=== PATIENT | male | born 1990 | race Caucasian/White ===

== ENCOUNTER 2017-08-04 06:39 | Emergency (ER) | payer OTHER ==
[~2017-08-04] VITALS: Ht 170.2 cm; Wt 78.7 kg
[2017-08-04 06:41] VITALS: Ht 170.2 cm; Wt 78.7 kg
[2017-08-04] MEDS ORDERED: IBUPROFEN 600 MG TAB PO ONE (07:00)
[2017-08-04 07:04] LABS: BASOPHILS % 0.4 % (0.0-2.0); EOSINOPHILS # 0.1 10^3/ul (0.0-0.5); EOSINOPHILS % 1.1 % (0.0-7.0); HEMATOCRIT 37.5 % (42.0-52.0); HEMOGLOBIN 12.9 g/dl (14.0-18.0); LYMPHOCYTES # 1.7 10^3/ul (0.8-2.9); MEAN CORPUSCULAR HEMOGLOBIN 31.8 pg (29.0-33.0); MEAN CORPUSCULAR HGB CONC 34.4 g/dl (32.0-37.0); MEAN CORPUSCULAR VOLUME 92.4 fl (82.0-101.0); MEAN PLATELET VOLUME 9.5 fl (7.4-10.4); MONOCYTE # 1.3 10^3/ul (0.3-0.9); MONOCYTES % 14.2 % (0.0-11.0); NEUTROPHIL # 6.2 10^3/ul (1.6-7.5); NEUTROPHILS % 66.1 % (39.0-77.0); PLATELET COUNT 201 10^3/UL (140-415); RED BLOOD COUNT 4.06 10^6/ul (4.70-6.10); RED CELL DISTRIBUTION WIDTH 11.9 % (11.5-14.5); WHITE BLOOD COUNT 9.4 10^3/ul (4.8-10.8)
[2017-08-04 07:23] LABS: ALBUMIN 4.3 g/dl (3.3-4.9); ALBUMIN/GLOBULIN RATIO 1.1; BILIRUBIN,INDIRECT 0.8 mg/dl (0-1.1); BILIRUBIN,TOTAL 0.8 mg/dl (0.2-1.3); CREATININE 1.03 mg/dl (0.61-1.24); POTASSIUM 3.9 mmol/L (3.5-5.1); TOTAL PROTEIN 8.2 g/dl (6.1-8.1); URIC ACID 4.5 mg/dl (3.1-7.9)
[2017-08-04] MEDS ORDERED: TRAM50TA2 PO (07:43)
[2017-08-04] MEDS ORDERED: IBUP-1542 PO (07:43)
--- NOTE | 2017-08-04 07:49 | RADRPT ---
PROCEDURE: XR Ankle. CLINICAL INDICATION: pain TECHNIQUE: AP, oblique and lateral views of the left ankle were performed. COMPARISON: FINDINGS: There is normal mineralization and alignment. No fracture or osseous lesion is identified. The joints are normal. There is soft tissue swelling lateral to lateral malleolus. IMPRESSION: Soft tissue swelling lateral to the lateral malleolus with no acute fracture. Physician Enio Date Time Electronically viewed and signed by Physician Enio on 08/04/2017 07:48 ROSA/
--- NOTE | 2017-08-04 07:49 | ERD ---
ER Documentation Chief Complaint Chief Complaint left ankle pain/swelling this morning, no injury HPI 27-year-old male woke this morning with left ankle pain. Denies any history of injury. He denies any fevers. Denies any history of gout or additional symptoms. Denies any penile discharge, sore throat, cough, vomiting. ROS All systems reviewed and are negative except as per history of present illness. Medications Home Meds Active Scripts Tramadol HCl (Tramadol HCl) 50 Mg Tablet, 50 MG PO Q4 Y for PAIN, #15 TAB Prov:CARLOS STERLING MD 08/04/17 Ibuprofen* (Motrin*) 600 Mg Tab, 600 MG PO Q6, #20 TAB Prov:CARLOS STERLING MD 08/04/17 Allergies Allergies: Coded Allergies: No Known Drug Allergies (Verified Allergy, 08/30/12) PMhx/Soc Medical and Surgical Hx: pt denies Medical Hx, pt denies Surgical Hx Hx Alcohol Use: No Hx Substance Use: Yes (MARYJUANA, METH) Hx Tobacco Use: No Physical Exam Vitals Vital Signs Date Time Temp Pulse Resp B/P Pulse Ox O2 Delivery O2 Flow Rate FiO2 08/04/17 06:41 98.5 96 18 120/62 97 Physical Exam Const: [] Alert, [id number]. Head: Atraumatic Eyes: Normal Conjunctiva ENT: Normal External Ears, Nose and Mouth. Neck: Full range of motion..~ No meningismus. Resp: Clear to auscultation bilaterally Cardio: Regular rate and rhythm, no murmurs Abd: Soft, non tender, non distended. Normal bowel sounds Skin: No petechiae or rashes Back: No midline or flank tenderness Ext: No cyanosis, or edema. Tenderness mild swelling left ankle joint with slight warmth. No erythema or streaking. Neur: Awake and alert Psych: Normal Mood and Affect Result Diagram: 08/04/1758 08/04/1758 Results 24 hrs Laboratory Tests Test 08/04/17 06:58 White Blood Count 9.410^3/ul Red Blood Count 4.0610^6/ul Hemoglobin 12.9g/dl Hematocrit 37.5% Mean Corpuscular Volume 92.4fl Mean Corpuscular Hemoglobin 31.8pg Mean Corpuscular Hemoglobin Concent 34.4g/dl Red Cell Distribution Width 11.9% Platelet Count 55422^3/UL Mean Platelet Volume 9.5fl Neutrophils % 66.1% Lymphocytes % 18.0% Monocytes % 14.2% Eosinophils % 1.1% Basophils % 0.4% Nucleated Red Blood Cells % 0.0/100WBC Neutrophils # 6.210^3/ul Lymphocytes # 1.710^3/ul Monocytes # 1.310^3/ul Eosinophils # 0.110^3/ul Basophils # 0.010^3/ul Nucleated Red Blood Cells # 0.010^3/ul Sodium Level 143mmol/L Potassium Level 3.9mmol/L Chloride Level 102mmol/L Carbon Dioxide Level 30mmol/L Anion Gap 15 Blood Urea Nitrogen 19mg/dl Creatinine 1.03mg/dl Glucose Level 108mg/dl Uric Acid 4.5mg/dl Calcium Level 9.0mg/dl Total Bilirubin 0.8mg/dl Direct Bilirubin 0.00mg/dl Indirect Bilirubin 0.8mg/dl Aspartate Amino Transf (AST/SGOT) 47IU/L Alanine Aminotransferase (ALT/SGPT) 69IU/L Alkaline Phosphatase 102IU/L Total Protein 8.2g/dl Albumin 4.3g/dl Globulin 3.90g/dl Albumin/Globulin Ratio 1.10 Current Medications Medications (Trade) Dose Ordered Sig/Andres Route PRN Reason Start Time Stop Time Status Last Admin Dose Admin Ibuprofen (Motrin) 600 mg ONCE ONCE PO 08/04/17 07:00 08/04/17 07:01 DC 08/04/17 06:57 Dexamethasone (Decadron) 8 mg ONCE ONCE PO 08/04/17 08:00 08/04/17 08:01 Procedures/MDM Patient presents with arthralgia of uncertain etiology since this morning. CBC is normal with a high monocyte pattern. Uric acid is normal and CMP normal. X-ray Ankle 3V Interpreted by me: Bones: [No fracture] Joints: No dislocation impression-normal left ankle x-ray. Patient currently shows no signs to suggest septic arthritis, osteomyelitis, ischemia. Fracture, dislocation or additional emergent causes of ankle pain but patient advised to return immediately for worsening redness, fevers, new worsening symptoms. Given Decadron 8 mg by mouth for possible inflammatory cause will be treated with tramadol ibuprofen at home primary care and orthopedic follow-up. The patient was stable with no new complaints during the ER course. Clinically, there is no current evidence to suggest meningitis, sepsis, acute abdomen, pneumonia, acute coronary syndrome, pulmonary embolism, or any other emergent condition appearing to require further evaluation or hospitalization. The patient should certainly return for any new or worsening symptoms per the aftercare instructions. They should otherwise follow-up with her primary care doctor for reevaluation this week. Departure Diagnosis: Primary Impression: Arthralgia Joint pain location: ankle Laterality: left Qualified Code: M25.572 - Arthralgia of left ankle Condition: Stable Patient Instructions: Arthralgia Referrals: MARI LING MD Additional Instructions: X-ray labs normal today. May be inflammatory or occult injury. Return for fevers, worsening redness, new worsening symptoms. Ice and elevate at home. See primary doctor and orthopedist for pain next week. CARLOS STERLING MD Aug 04, 2017 07:49
[2017-08-04] MEDS ORDERED: HYDROCODONE/APAP (5/325) TAB PO ONE (08:00)
[2017-08-04] MEDS ORDERED: DEXAMETHASONE 4 MG TAB PO ONE (08:00)
== END 2017-08-04 08:10 | disposition home or self-care (01) ==
LOC: FTE 06:39
DX: M25.572 Pain in left ankle and joints of left foot (principal)
CPT/HCPCS: 73610; 80053; 84560; 85025; Z7502; Z7610